=== PATIENT | male | born 1960 | race Caucasian/White ===

== ENCOUNTER 2017-10-20 12:18 | Emergency (ER) | payer BC ==
--- NOTE | 2017-10-20 12:43 | EDM.PDOC ---
ED HPI GENERAL MEDICAL PROBLEM - General Chief Complaint: Lower Extremity Injury/Pain Stated Complaint: RIGHT LEG INJURY Time Seen by Provider: 10/20/17 12:41 Source of Information: Reports: Patient History Limitations: Reports: No Limitations - History of Present Illness INITIAL COMMENTS - FREE TEXT/NARRATIVE: 57-year-old male presents sense for evaluation and treatment of injury to the right leg and ankle. Patient reports he was riding a horse when the horse reared Up and went down landing onto his right leg and ankle. He is primarily complaining of pain to the right distal lower leg and right ankle. He denies any head trauma. No loss of consciousness. No nausea, vomiting, chest pain, shortness of breath or abdominal pain. He denies any neck pain. He has been walking after the injury. He denies any numbness or tingling to the foot or ankle. No previous injury to the foot or ankle. trauma alert minor called upon arrival. Onset: Today Location: Reports: Upper Extremity, Right Right Ankle Pain Score (Numeric/FACES): 7 - Related Data Allergies Allergy/AdvReac Type Severity Reaction Status Date / Time No Known Allergies Allergy Verified 10/20/17 12:41 Home Meds: Home Meds Aspirin 1 tab PO DAILY 10/20/17 [History] Fish Oil/[place]-3 Fatty Acids [Fish Oil] 1 tab PO DAILY 10/20/17 [History] Melatonin 1 mg PO BEDTIME 10/20/17 [History] Simvastatin [Zocor] 80 mg PO BEDTIME 10/20/17 [History] Review of Systems - Review of Systems Review Of Systems: See Below Respiratory: Denies: Shortness of Breath Cardiovascular: Denies: Chest Pain GI/Abdominal: Denies: Abdominal Pain, Nausea, Vomiting Musculoskeletal: Reports: Leg Pain (right distal lower leg, right ankle), Joint Swelling (right ankle). Denies: Neck Pain Neurological: Denies: Numbness, Tingling ED EXAM, GENERAL - Physical Exam Exam: See Below Exam Limited By: No Limitations General Appearance: Alert, WD/WN, No Apparent Distress Eye Exam: Bilateral Eye: Normal Inspection Ears: Normal External Exam Nose: Normal Inspection Throat/Mouth: Normal Inspection, Normal Lips, Normal Voice, No Airway Compromise Neck: Full Range of Motion Respiratory/Chest: No Respiratory Distress, Lungs Clear, Normal Breath Sounds Cardiovascular: Normal Peripheral Pulses, Regular Rate, Rhythm, No Murmur GI/Abdominal: Normal Bowel Sounds, Soft, Non-Tender Extremities: Joint Swelling (right ankle), Other (tenderness to the right distal fibula and tibia, medial and lateral right malleolus; able to wiggle toes , reports sensation to light touch to the right foot and ankle) Neurological: Alert, Oriented, Normal Cognition Psychiatric: Normal Affect, Normal Mood Skin Exam: Warm, Dry, Normal Color ED TRAUMA EXTREMITY PROCEDURES - Splinting Right Lower Extremity Splint Site: right ankle Pre-Procedure NV Status: Normal Post-Procedure NV Status: Normal Splint Material: Other (orthoglass) Splint Design: Stirrup, Posterior Applied & Form Fitted By: Provider, Nurse Provider Post-Splint Application NV Check: NV Status Normal, Good Position Complications: No Course - Vital Signs Last Recorded V/S: Last Vital Signs Temp 98.8 F 10/20/17 12:27 Pulse 65 10/20/17 12:27 Resp 16 10/20/17 12:27 BP 135/88 10/20/17 12:27 Pulse Ox 98 10/20/17 12:27 - Orders/Labs/Meds Orders: Active Orders 24 hr Category Date Time Status Ankle Min 3V Rt [CR] Stat Exams 10/20/17 12:43 Taken Tibia Fibula Rt [CR] Stat Exams 10/20/17 12:43 Taken - Radiology Interpretation Free Text/Narrative:: xray of the right tibial and fibula and right ankle shows a moderately displaced fracture of the right distal fibula. - Re-Assessments/Exams Free Text/Narrative Re-Assessment/Exam: 10/20/17 14:01 Dr. Prado has seen and evaluated the patient as this was a trauma alert minor. He discussed with them the x-ray results as well as splinting and crutches. Recommended ice and elevation. Ibuprofen first and pain medication second. No driving. Follow-up with ortho in one week. Educated on compartment syndrome symptoms such as numbness, coldness, tingling and encouraged to return to the ER if he experiences these symptoms. Patient was splinted in a posterior slab splint and stirrup. He tolerated this well. He is offered pain medication throughout ER stay but declined. Discharge instructions as documented. Departure - Departure Time of Disposition: 14:03 Disposition: Home, Self-Care 01 Condition: Fair Clinical Impression: Fracture of distal fibula - Discharge Information Instructions: Fibular Ankle Fracture Treated With or Without Immobilization, Adult Referrals: PCP,Not In Area [Primary Care Provider] - Kermit Vazquez MD [Physician] - Forms: ED Department Discharge, ED Return to Work/School Form Additional Instructions: Rx for percocet 5-325mg tabs si-2 tabs PO every 4-6 hours # 20 from [facility] Follow-up with orthopedics in [address] Vazquez here in [place]. Call tomorrow to schedule with him. Call [phone]. Or Dr. Dumont, orthopedics, is also available. Call [phone] to schedule with him. Wear the splint at all times. Keep covered when around water with a bag or seran wrap. Crutches at all time. Elevate as much as as you able to. Ice the area, even over the splint. Take [id number] ibuprofen for pain relief. Do not take more than 3200 mg of ibuprofen from all sources in 1 day. Percocet 1 or 2 tabs every 4-6 hours as needed for severe pain. Do not drive or operate machinery within 12 hours of taking Percocet. Percocet is habit-forming, take as few these as needed to control your pain. You are at higher risk for compartment syndrome. Return to the ER if you experience any numbness, cold extremity, tingling, white blue discoloration to the leg. Please return to the ER if your symptoms change or worsen. - My Orders Last 24 Hours: My Active Orders 10/20/17 12:43 Ankle Min 3V Rt [CR] Stat Tibia Fibula Rt [CR] Stat - Assessment/Plan Last 24 Hours: My Active Orders 10/20/17 12:43 Ankle Min 3V Rt [CR] Stat Tibia Fibula Rt [CR] Stat
--- NOTE | 2017-10-21 13:44 | CR ---
Right ankle: Four views of the right ankle were obtained. Comparison: No prior ankle study. Mildly displaced fracture is seen within the distal one third diaphysis of the fibula. Ankle mortise is slightly asymmetric. Small calcifications likely representing old injury are seen between the talus and medial malleolus. Soft tissue swelling is seen. Plantar spur is noted. Impression: 1. Slightly displaced distal one third diaphyseal fracture within the fibula. 2. Slightly asymmetric ankle mortise. 3. Other incidental findings. Diagnostic code #3
--- NOTE | 2017-10-21 14:01 | CR ---
Right tibia and fibula: Two views of the right tibia and fibula were obtained. Fracture is again noted within the distal one third diaphysis of the fibula with mild displacement. No proximal bony abnormality is seen. Impression: 1. Distal fibular diaphyseal fracture. No other fracture is identified. Diagnostic code #3
== END 2017-10-20 14:35 | disposition home or self-care (01) ==
LOC: JD.ED 12:18
DX: S82.831A Other fracture of upper and lower end of right fibula, initial encounter for closed fracture (principal); V80.010A Animal-rider injured by fall from or being thrown from horse in noncollision accident, initial encounter; Z79.82 Long term (current) use of aspirin; Z79.899 Other long term (current) drug therapy
CPT/HCPCS: 29515; 73590-26-RT; 73590-RT; 73610-26-RT; 73610-RT; 99283-25; 99284-25

== ENCOUNTER → 2017-10-24 | Day surgery (SDC) | payer BC ==
[~2017-10-24] MED LIST: HYDROmorphone 0.5 MG/0.5 ML Syringe IVPUSH PRN; HYDROmorphone 0.5 MG/0.5 ML Syringe ONE; Ketamine 500 mg/10 ML MDV ONE; Ketorolac 30 MG/ML SDV ONE; Lactated Ringers 1,000 ML IV SCH; Lidocaine 1% 4 ML ONE; Lidocaine 1%/Sod Bicarbonate in NS 8.4% 1 ML Syringe IDERM PRN; Meperidine PF 50 MG/ML Syringe IVPUSH PRN; Midazolam 1 MG/ML 2 ML SDV ONE; Ondansetron 4 MG/2 ML SDV IVPUSH PRN; Ondansetron 4 MG/2 ML SDV ONE; Propofol 200 MG/20 ML SDV ONE; Sodium Chloride 0.9% 10 ML Syringe FLUSH PRN; ceFAZolin 1 GM Vial ONE; ePHEDrine/Normal Saline 25 MG/5 ML Syringe ONE; fentaNYL 100 MCG/2 ML SDV IVPUSH PRN; fentaNYL 250 MCG/5 ML SDV ONE
--- NOTE | 2017-10-24 11:34 | PCM.PREANE ---
Preanesthetic Assessment - Anesthesia/Transfusion/Family Hx Anesthesia History: Prior Anesthesia Without Reaction Family History of Anesthesia Reaction: No Transfusion History: No Prior Transfusion(s) Intubation History: Unknown - Review of Systems General: No Symptoms Pulmonary: No Symptoms (occasional cigar/quit smoking cigarettes 20 years ago.) Cardiovascular: No Symptoms Gastrointestinal: No Symptoms Neurological: No Symptoms Other: Reports: None (Overactive bladder noted with frequent urination) - Physical Assessment NPO Status Date: 10/23/17 NPO Status Time: 20:30 Pulse: 70 O2 Sat by Pulse Oximetry: 97 Respiratory Rate: 16 Blood Pressure: 139/97 Temperature: 36.7 C Height: 1.83 m Weight: 107 kg ASA Class: 1 Mental Status: Alert & Oriented x3 Airway Class: Mallampati = 2 Dentition: Reports: Normal Dentition, Broken Tooth/Teeth (cracked but solid tooth noted in the upper right), Caries Thyro-Mental Finger Breadths: 3 Mouth Opening Finger Breadths: 3 ROM/Head Extension: Full Lungs: Clear to Auscultation, Normal Respiratory Effort Cardiovascular: Regular Rate, Regular Rhythm, No Murmurs - Lab Values: All labs reviewed and noted and within acceptable ranges to proceed with scheduled procedure. MRSA= - - Imaging/EKG Impressions: Stress Test done 2012 negative in [place]. - Allergies Allergies/Adverse Reactions: Allergies Allergy/AdvReac Type Severity Reaction Status Date / Time No Known Allergies Allergy Verified 10/23/17 13:49 - Anesthesia Plan Pre-Op Medication Ordered: None - Acknowledgements Anesthesia Type Planned: General Anesthesia Pt an Appropriate Candidate for the Planned Anesthesia: Yes Alternatives and Risks of Anesthesia Discussed w Pt/Guardian: Yes Pt/Guardian Understands and Agrees with Anesthesia Plan: Yes PreAnesthesia Questionnaire HEENT History: Reports: Impaired Vision Cardiovascular History: Reports: High Cholesterol Respiratory History: Reports: None Gastrointestinal History: Reports: None Genitourinary History: Reports: None HOGSHEAD HAND History: Reports: None Musculoskeletal History: Reports: None Neurological History: Reports: None Psychiatric History: Reports: None Endocrine/Metabolic History: Reports: None Hematologic History: Reports: None Immunologic History: Reports: None Oncologic (Cancer) History: Reports: None Dermatologic History: Reports: None - Past Surgical History Head Surgeries/Procedures: Reports: None HEENT Surgical History: Reports: Tonsillectomy Cardiovascular Surgical History: Reports: None Respiratory Surgical History: Reports: None GI Surgical History: Reports: None Female Surgical History: Reports: None Male Surgical History: Reports: None Endocrine Surgical History: Reports: None Neurological Surgical History: Reports: None Musculoskeletal Surgical History: Reports: None Oncologic Surgical History: Reports: None Dermatological Surgical History: Reports: None - SUBSTANCE USE Smoking Status *Q: Former Smoker Recreational Drug Use History: No - HOME MEDS Home Medications: Home Meds Fish Oil/[place]-3 Fatty Acids [Fish Oil] 1 tab PO DAILY 10/20/17 [History] Melatonin 1 mg PO BEDTIME 10/20/17 [History] Simvastatin [Zocor] 80 mg PO BEDTIME 10/20/17 [History] Acetaminophen/HYDROcodone [[place] 325-5 MG] 1 - 2 tab PO Q6H PRN #40 tablet 10/24 [Rx] Aspirin 325 mg PO BID #84 tab 10/24/17 [Rx] - CURRENT (IN HOUSE) MEDS Current Meds: Current Medications Lactated Ringer's (Ringers, Lactated) 1,000 mls @ 125 mls/hr IV ASDIRECTED ZAINAB Stop: 10/24/17 23:00 Last Admin: 10/24/17 11:23 Dose: 125 mls/hr Lidocaine/Sodium Bicarbonate (Buffered Lidocaine 1% In Ns 8.4%) 0.25 ml IDERM ONETIME PRN PRN Reason: Prior to IV Start Stop: 10/24/17 18:00 Last Admin: 10/24/17 11:23 Dose: 0.25 ml Sodium Chloride (Saline Flush) 10 ml FLUSH ASDIRECTED PRN PRN Reason: Keep Vein Open Stop: 10/24/17 18:00
[2017-10-24] MEDS: Bupivacaine 0.25% 30 ML SDV ONE ×2 (13:19→13:55)
--- NOTE | 2017-10-24 14:51 | PCM.POSTAN ---
POST ANESTHESIA ASSESSMENT - MENTAL STATUS Mental Status: Alert, Oriented - VITAL SIGNS Pulse Rate: 68 SaO2: 96 Resp Rate: 15 Blood Pressure: 141/78 Temperature: 98.1 F - RESPIRATORY Respiratory Status: Respiratory Rate WNL, Airway Patent, O2 Saturation Stable, Supplemental Oxygen - CARDIOVASCULAR CV Status: Pulse Rate WNL, Blood Pressure Stable - GASTROINTESTINAL GI Status: No Symptoms - PAIN Pain Score: 0 - POST OP HYDRATION Hydration Status: Adequate & Stable
--- NOTE | 2017-10-24 15:09 | CR ---
Right ankle: Seven fluoroscopic spot views were obtained of the right ankle utilizing C-arm device. Comparison: Prior right ankle exam of 10/20/17. Study shows reduction and fixation of previous distal fibular shaft fracture. Plate and screws have been placed as well as additional screw crossing the fibula into the tibia. Ankle mortise has been restored to normal in alignment. Fluoroscopy time given as 29.3 seconds. Impression: 1. Reduction and fixation of previous fracture with amish of normal appearing ankle mortise. Diagnostic code #2
--- NOTE | 2017-10-24 15:37 | PCM48HPAN ---
Post Anesthesia Note - EVALUATION WITHIN 48HRS OF ANESTHETIC Vital Signs in Normal Range: Yes Patient Participated in Evaluation: Yes Respiratory Function Stable: Yes Airway Patent: Yes Cardiovascular Function Stable: Yes Hydration Status Stable: Yes Pain Control Satisfactory: Yes Nausea and Vomiting Control Satisfactory: Yes (eating crackers no complaints) Mental Status Recovered: Yes Resp Rate: 16
--- NOTE | 2017-10-28 07:18 | PCM.OPNOTE ---
- General Post-Op/Procedure Note Date of Surgery/Procedure: 10/24/17 Operative Procedure(s): open reduction internal fixation or right lateral malleolus and syndesmosis Pre Op Diagnosis: bimalleolar equivalent ankle fracture Post-Op Diagnosis: Same Anesthesia Technique: General LMA, Local Primary Surgeon: Kermit Vazquez Anesthesia Provider: [employer] Specialist: Celeste Matos EBL in mLs: 10 Complications: None Condition: Good
--- NOTE | 2017-10-29 10:45 | OR ---
DATE OF OPERATION: 10/24/2017 SURGEON: Kermit Vazquez MD OPERATION PERFORMED: Open reduction, internal fixation of right lateral malleolus and syndesmosis. PREOPERATIVE DIAGNOSIS: Right bimalleolar equivalent ankle fracture. POSTOPERATIVE DIAGNOSIS: Right bimalleolar equivalent ankle fracture. ANESTHESIA: General LMA with local. ANESTHESIA PROVIDER: Minesh Triana CRNA. TABLE WORKER: Celeste Matos PA-C. ESTIMATED BLOOD LOSS: 10 mL. COMPLICATIONS: None. CONDITION: Stable. DESCRIPTION OF PROCEDURE: The patient was identified in the preop holding area. Proper site was marked and identified by the surgeon. The patient was taken back to the OR after adequate anesthesia. The patient's right lower extremity had a nonsterile tourniquet applied and was then sterilely prepped and draped in the usual sterile fashion. OR time-out was performed. The patient received 2 g IV Ancef. Right lower extremity was then exsanguinated. Tourniquet was insufflated to 250 mmHg. Standard incision was made laterally on the fibula, centered over the fracture site. Care was taken to protect the cutaneous nerves. Blunt dissection was taken down to the fracture site, which was identified. Curette and rongeur were used to clear all fracture hematoma and soft tissue at this time. At this time, it was noted that an antiglide plate could be applied without a lag screw. A [id number] reduction clamp along with lobster clamps were then used to bring the fibula out to length and get proper rotation. A K- wire was then placed across the fracture site to provisionally hold it and a Ana 7 hole titanium plate was placed laterally after being contoured. Once it was contoured, a proximal screw was placed at the apex of the antiglide portion to keep length and rotation. Next, combination of locking and nonlocking screws were placed both proximally and distally and there was adequate fixation of the fracture site. At this time, the patient was noted to have bimalleolar ankle equivalent fracture and there was need for syndesmotic fixation. At this time, two 3.5 mm tricortical screws were placed and then were compressed. The patient had a stressed view taken, which showed no widening of medial clear space with symmetric ankle mortise. At this time, it was found to be adequately fixed. Adequate saline was irrigated through the wound. A 2-0 Vicryl was used deep and 3-0 Vicryl was used subcutaneously and rosie used for the skin. The patient was placed in a sterile soft dressing and a posterior slab splint and sent to PACU in stable condition. ANGEL /[id number]
== END | disposition home or self-care (01) ==
LOC: JD.SDS 10:40
PROVIDERS: ATTEND Orthopaedic Surgery
DX: S82.841A Displaced bimalleolar fracture of right lower leg, initial encounter for closed fracture (principal); E78.5 Hyperlipidemia, unspecified; Z79.82 Long term (current) use of aspirin; Z79.899 Other long term (current) drug therapy; W01.0XXA Fall on same level from slipping, tripping and stumbling without subsequent striking against object, initial encounter; Y93.52 Activity, horseback riding
CPT/HCPCS: 01480; 76000; 76000-26; 93005; C1713; C1769; C1776; J0690; J1170; J1885; J2001; J2250; J2405; J2704; J3010; J3490; J7050; J7120